=== PATIENT | female | born 1970 | race Caucasian/White ===

== ENCOUNTER → 2018-05-02 08:41 | Outpatient (CLI) | payer BC, SELFPAY ==
[2018-05-02 11:26] LABS: Anion Gap 8.6 mmol/L (3-11); BUN 12 mg/dL (7-18); CO2 28.4 mmol/L (21.0-32.0); CREATININE 1.11 mg/dL (0.55-1.02); Calcium 8.8 mg/dL (8.5-10.1); Chloride 102 mmol/L (98-107); Cholesterol 187 mg/dL (50-200); Estimated GFR 52.24 (mL/min/1.73m2); Glucose 92 mg/dL (70-100); HDL Cholesterol 72 mg/dL (40-60); LDL CHOLESTEROL 91 mg/dL (<100); Magnesium 1.9 mg/dL (1.8-2.4); Potassium 4.1 mmol/L (3.5-5.1); Sodium 139 mmol/L (136-145); Triglyceride 87 mg/dL (30-150)
== END ==
PROVIDERS: PCP Nurse Practitioner Family; Visit Provider Nurse Practitioner Family
DX: Z00.00 Encounter for general adult medical examination without abnormal findings (principal); R00.2 Palpitations; L71.9 Rosacea, unspecified
CPT/HCPCS: 36415; 80048; 80061; 83721; 83735

== ENCOUNTER → 2018-05-02 09:21 | Outpatient (REF) | payer BC, SELFPAY ==
--- NOTE | 2018-05-02 08:30 | PAPFT_PTH ---
PATIENT: Paulina Cook LOC: [facility] U#:[id number] AGE/SX: 55/F ROOM: RE05/02/[address]: LINDA Melton : 1970 BED: DIS: SPEC #: [id number] RECD: 05/02/18 12:53 STATUS: CHARMAINE RETerri #: [id number] HERVE: 05/02/18 08:[address]: Mary Henning DEPT: [facility] Cytology RECD BY: Ghazala Zacarias Tissues: 1 - CX/ENDOCX FOR PAP SMEARS Procedures: PAP THIN PREP/UVM Screening HPV DNA PROBE Comments: [id number]
== END ==
LOC: LBN 09:21
PROVIDERS: PCP Nurse Practitioner Family; Visit Provider Nurse Practitioner Family
DX: Z12.4 Encounter for screening for malignant neoplasm of cervix (principal); Z11.51 Encounter for screening for human papillomavirus (HPV)
CPT/HCPCS: 88142; 87624

== ENCOUNTER 2018-06-12 07:06 | Emergency (ER) | payer BC, SELFPAY ==
[2018-06-12] VITALS (12 sets, daily range): BP systolic 126–174; BP diastolic 72–87; PULSE 49–64; RESP 11–19; TEMP 37; O2SAT 99–100
--- NOTE | 2018-06-12 07:37 | W.ED.GENAD ---
Discharge Plan Disposition Patient Disposition: HOME Condition: Improving Discharge Details Chief Complaint: Dizzy/Sync Clinical Impression: Calf cramp Primary Care Provider: Mary Henning ED Provider: Matthew Rodriguez Home Meds and New Rx's Prescriptions: Continue ketoconazole [Nizoral] 120 ML shampoo 120 ml Topical as directed Qty: 1 RF: 12 metronidazole [MetroCream] 45 GM cream 45 gm Topical DAILY Qty: 1 RF: 0 azelaic acid [Finacea] 50 GM gel 1 applic Topical DAILY RF: 0 Discharge Instructions Additional Instructions: Home to rest today. Small, frequent sips of fluids to maintain hydration. Please increase leafy green vegetables, tree nuts, strawberries or bananas in your diet as we discussed. Follow-up with regular doctor for any concerns. Return to the emergency department for any acute concerns Discharge Data Discharge Date/Time-TO BE ENTERED AT DEPARTURE: 06/12/18 08:47 Medical Decision Making <Armando Hyatt DO - Last Filed: 06/13/18 02:21> This is a pleasant 47-year-old female who presents for evaluation of syncope. Patient was woken up out of sleep by a cramp in her right leg. She got out of bed and began rubbing her leg, however as the leg cramp resolved, she began to become very lightheaded, and then had a syncopal episode. She did fall, but she did not hit her head. She was seen by her , who immediately put a pillow under her head. Her episode of syncope lasted less than 1 minute. She had no tonic-clonic movement. After which she responded and returned to a normal neurologic status. She did have urinary incontinence though. She denies any chest pain, chest pressure, or shortness of breath. Denies PE risk factors such as recent long car rides, immobilization, recent surgery, prior history of DVT or PE, family history of PE or DVT, morbid obesity, exogenous estrogen and smoking, hemoptysis, history of cancer. She denies any history or family history of AAA, aortic dissection, stroke, or myocardial infarction. Physical exam demonstrates normal neurologic exam. No signs of cranial trauma. She has no headache, no signs of meningitis, no neck tenderness, no C-spine tenderness. With a normal neurologic exam, no headache, no visual deficits, no other neurologic abnormalities I do not feel that a CT scan of the head is indicated at this time. Signs and symptoms are most likely concerning for vasovagal syncope secondary to the pain, however because of her history with the calf pain followed by the true syncopal episode pulmonary embolism/DVT does arise on the differential. We will get a d-dimer to evaluate further for this. The patient will be rehydrated with normal saline, laboratory workup will be ordered, will get a chest x-ray to evaluate for any acute fracture, mediastinal widening or other acute process. EKG is benign. Case will be signed out to my colleague. EKG 7: 28 Rate 52, NM 112, QTc 415, QRS 98, sinus bradycardia, short NM syndrome, no ST elevations or depressions, no T wave inversions except for in V1. No evidence of delta wave, epsilon wave, or Brugada syndrome <Matthew Rodriguez MD - Last Filed: 06/12/18 08:39> Received signout on the patient from Dr. Hyatt. Please see his note regarding details of the history, presentation, initial exam and medical decision making. Patient's laboratories unremarkable including CBC, comprehensive, negative troponin and d-dimer. Chest x-ray without acute findings. She is improved. Discussed with her return precautions. She is stable for outpatient management. This is consistent with muscular lower extremity cramping subsequent syncopal event without evidence of seizure or other underlying occult process. Lab Data Lab results reviewed: Yes I reviewed the patient's lab results. HPI <Armando Hyatt DO - Last Filed: 06/13/18 02:21> General Date/Time Provider Initiated Documentation: 06/12/18 07:24. HPI Narrative: This is a 47-year-old female with no past medical history who takes a multivitamin and calcium, whose past surgical history is positive for wisdom teeth removal. She presents today for evaluation of syncope. States that she woke up this morning with a severe cramp in her right leg. She states she usually does not get cramps. She stood up out of bed, began rubbing it. The crampy pain went away she suddenly began to feel very lightheaded, experienced tunnel vision, and passed out. She does not believe she hit her head, nor does her recall seeing her hit her head. He states that she was unconscious for less than a minute, had no tonic-clonic movements, but was completely out of it. After 1 minute the patient spontaneously came back to her normal self, and began conversing and moving all extremities. Patient denies any chest heaviness, chest pain, arm pain, neck pain, numbness tingling or weakness. She is able to get up by herself and stand without significant difficulty. She does admit to urinary incontinence, but no bowel incontinence. She denies any history of seizure or epilepsy. She denies any pain in her mouth. She denies any family or personal history of stroke or myocardial infarction. Currently she denies any headache, neck pain, neck pain, arm or chest pain. Patient states that she does have a very small amount of rib soreness on the right where she fell, however she cannot localize this at all at this point. She states that she feels the pain is most completely resolved patient denies any previous surgeries except for tonsillectomy. Patient denies IV or illicit drug use. She has no other complaints at this time. Related Data Home Medications Medication Instructions Recorded Confirmed ketoconazole [Nizoral] 120 ml TOPICAL as directed #1 11/15/16 06/12/18 script metronidazole [MetroCream] 45 gm TOPICAL DAILY #1 script 11/15/16 06/12/18 azelaic acid [Finacea] 1 applic TOPICAL DAILY script 04/24/18 06/12/18 Allergies Allergy/AdvReac Type Severity Reaction Status Date / Time Sulfa (Sulfonamide Allergy Severe Unverified 06/12/18 07:56 Antibiotics) Review of Systems <Armando Hyatt DO - Last Filed: 06/13/18 02:21> Review of Systems 10 point review of systems was performed, pertinent positives and negatives are noted in the history of present illness. Exam <Armando Hyatt DO - Last Filed: 06/13/18 02:21> Narrative Exam Narrative: 1.Const: Well-nourished, Well-developed, appearing stated age 2.Eyes: PERRL, no conjunctival injection, and symmetrical lids. Minimal horizontal nystagmus. No vertical or rotatory nystagmus. 3.ENT: Atraumatic external nose and ears. Moist MM. Neck: Symmetric, trachea midline, No thyromegaly. No evidence of tongue biting lesions or oral mucosal biting lesions. There is no evidence of raccoon eyes, gay sign, CSF rhinorrhea, mastoid tenderness, cranial crepitus, hemotympanum, exophthalmos, or hyphema. Patient demonstrates intact dentition with no signs of tooth avulsion or fracture, no signs of jaw deformity, no evidence of a LeFort's fracture, with an intact palate, nose and orbital region. There is no evidence of a nasal septal hematoma. No proptosis. Jaw closes symmetrically. Airway is clear. 4.CVS: +S1/S2, No murmurs or gallops. Peripheral pulses 2+ and equal in all extremities. Brisk capillary refill in all extremities. 5.RESP: Unlabored respiratory effort. Clear to auscultation bilaterally. No wheezes rales or rhonchi 6.GI: Soft, Nontender/Nondistended, No hepatosplenomegaly. No guarding or rebound. 7.MSK: Normocephalic/Atraumatic, Extremities w/o deformity or ttp No cyanosis or clubbing, Normal movement of all extremities. No bruising, deformity, or significant tenderness in the right chest. No calf tenderness. Negative Homans sign. 8.Skin: Warm, Dry. No rashes or lesions. 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 Sensation grossly intact, no focal neurologic deficits. Cerebellar function testing is normal. The patient demonstrates a normal hints exam with no findings concerning for a central event. No vertical nystagmus. The head impulse test is negative for any significant central abnormality. Normal test of skew. No suggestion of a central cerebellar event. All 6 cardinal planes of vision or fully intact. No evidence of horizontal or vertical nystagmus. The patient demonstrated a normal rvfqxk-reqq-rejese, good dexterity. There was no evidence of dysdiadochokinesia. Patient was able to ambulate without difficulty. There was no wide-based gait. Romberg, and egql-xw-twsz are both normal on testing. Sensation was intact bilaterally as well as muscle strength bilaterally for all extremities. Patient was able to verbalize butter cup with no slurring, or miss pronunciation. 10.Psych: (AAO) x3. Appropriate mood and affect Sign Out <Armando Hyatt, - Last Filed: 06/13/18 02:21> Sign Out Data: Sign Out Comment: pending labs and imaging Last updated by Armando Hyatt DO at 06/12/18 08:18
--- NOTE | 2018-06-12 07:41 | ED.GENADUL_ITS ---
Discharge Plan Disposition Patient Disposition: HOME Condition: Improving Discharge Details Chief Complaint: Dizzy/Sync Clinical Impression: Calf cramp Primary Care Provider: Mary Henning ED Provider: Matthew Rodriguez Home Meds and New Rx's Prescriptions: Continue ketoconazole [Nizoral] 120 ML shampoo 120 ml Topical as directed Qty: 1 RF: 12 metronidazole [MetroCream] 45 GM cream 45 gm Topical DAILY Qty: 1 RF: 0 azelaic acid [Finacea] 50 GM gel 1 applic Topical DAILY RF: 0 Discharge Instructions Additional Instructions: Home to rest today. Small, frequent sips of fluids to maintain hydration. Please increase leafy green vegetables, tree nuts, strawberries or bananas in your diet as we discussed. Follow-up with regular doctor for any concerns. Return to the emergency department for any acute concerns Discharge Data Discharge Date/Time-TO BE ENTERED AT DEPARTURE: 06/12/18 08:47 Medical Decision Making <Armando Hyatt DO - Last Filed: 06/13/18 02:21> This is a pleasant 47-year-old female who presents for evaluation of syncope. Patient was woken up out of sleep by a cramp in her right leg. She got out of bed and began rubbing her leg, however as the leg cramp resolved, she began to become very lightheaded, and then had a syncopal episode. She did fall, but she did not hit her head. She was seen by her , who immediately put a pillow under her head. Her episode of syncope lasted less than 1 minute. She had no tonic-clonic movement. After which she responded and returned to a normal neurologic status. She did have urinary incontinence though. She denies any chest pain, chest pressure, or shortness of breath. Denies PE risk factors such as recent long car rides, immobilization, recent surgery, prior history of DVT or PE, family history of PE or DVT, morbid obesity , exogenous estrogen and smoking, hemoptysis, history of cancer. She denies any history or family history of AAA, aortic dissection, stroke, or myocardial infarction. Physical exam demonstrates normal neurologic exam. No signs of cranial trauma. She has no headache, no signs of meningitis, no neck tenderness , no C-spine tenderness. With a normal neurologic exam, no headache, no visual deficits, no other neurologic abnormalities I do not feel that a CT scan of the head is indicated at this time. Signs and symptoms are most likely concerning for vasovagal syncope secondary to the pain, however because of her history with the calf pain followed by the true syncopal episode pulmonary embolism/DVT does arise on the differential. We will get a d-dimer to evaluate further for this. The patient will be rehydrated with normal saline, laboratory workup will be ordered, will get a chest x-ray to evaluate for any acute fracture, mediastinal widening or other acute process. EKG is benign. Case will be signed out to my colleague. EKG 7: 28 Rate 52, CA 112, QTc 415, QRS 98, sinus bradycardia, short CA syndrome, no ST elevations or depressions, no T wave inversions except for in V1. No evidence of delta wave, epsilon wave, or Brugada syndrome <Matthew Rodriguez MD - Last Filed: 06/12/18 08:39> Received signout on the patient from Dr. Hyatt. Please see his note regarding details of the history, presentation, initial exam and medical decision making. Patient's laboratories unremarkable including CBC, comprehensive, negative troponin and d-dimer. Chest x-ray without acute findings. She is improved. Discussed with her return precautions. She is stable for outpatient management. This is consistent with muscular lower extremity cramping subsequent syncopal event without evidence of seizure or other underlying occult process. Lab Data Lab results reviewed: Yes I reviewed the patient's lab results. HPI <Armando Hyatt DO - Last Filed: 06/13/18 02:21> General Date/Time Provider Initiated Documentation: 06/12/18 07:24 . HPI Narrative: This is a 47-year-old female with no past medical history who takes a multivitamin and calcium, whose past surgical history is positive for wisdom teeth removal. She presents today for evaluation of syncope. States that she woke up this morning with a severe cramp in her right leg. She states she usually does not get cramps. She stood up out of bed, began rubbing it. The crampy pain went away she suddenly began to feel very lightheaded, experienced tunnel vision, and passed out. She does not believe she hit her head, nor does her recall seeing her hit her head. He states that she was unconscious for less than a minute, had no tonic-clonic movements, but was completely out of it. After 1 minute the patient spontaneously came back to her normal self, and began conversing and moving all extremities. Patient denies any chest heaviness, chest pain, arm pain, neck pain, numbness tingling or weakness. She is able to get up by herself and stand without significant difficulty. She does admit to urinary incontinence, but no bowel incontinence. She denies any history of seizure or epilepsy. She denies any pain in her mouth. She denies any family or personal history of stroke or myocardial infarction. Currently she denies any headache, neck pain, neck pain, arm or chest pain. Patient states that she does have a very small amount of rib soreness on the right where she fell, however she cannot localize this at all at this point. She states that she feels the pain is most completely resolved patient denies any previous surgeries except for tonsillectomy. Patient denies IV or illicit drug use. She has no other complaints at this time. Related Data Home Medications Medication Instructions Recorded Confirmed ketoconazole [Nizoral] 120 ml TOPICAL as directed #1 11/15/16 06/12/18 script metronidazole [MetroCream] 45 gm TOPICAL DAILY #1 script 11/15/16 06/12/18 azelaic acid [Finacea] 1 applic TOPICAL DAILY script 04/24/18 06/12/18 Allergies Allergy/AdvReac Type Severity Reaction Status Date / Time Sulfa (Sulfonamide Allergy Severe Unverified 06/12/18 07:56 Antibiotics) Review of Systems <Armando Hyatt DO - Last Filed: 06/13/18 02:21> Review of Systems 10 point review of systems was performed, pertinent positives and negatives are noted in the history of present illness. Exam <Armando Hyatt DO - Last Filed: 06/13/18 02:21> Narrative Exam Narrative: 1.Const: Well-nourished, Well-developed, appearing stated age 2.Eyes: PERRL, no conjunctival injection, and symmetrical lids. Minimal horizontal nystagmus. No vertical or rotatory nystagmus. 3.ENT: Atraumatic external nose and ears. Moist MM. Neck: Symmetric, trachea midline, No thyromegaly. No evidence of tongue biting lesions or oral mucosal biting lesions. There is no evidence of raccoon eyes, gay sign, CSF rhinorrhea, mastoid tenderness, cranial crepitus, hemotympanum, exophthalmos, or hyphema. Patient demonstrates intact dentition with no signs of tooth avulsion or fracture, no signs of jaw deformity, no evidence of a LeFort's fracture, with an intact palate, nose and orbital region. There is no evidence of a nasal septal hematoma. No proptosis. Jaw closes symmetrically. Airway is clear. 4.CVS: +S1/S2, No murmurs or gallops. Peripheral pulses 2+ and equal in all extremities. Brisk capillary refill in all extremities. 5.RESP: Unlabored respiratory effort. Clear to auscultation bilaterally. No wheezes rales or rhonchi 6.GI: Soft, Nontender/Nondistended, No hepatosplenomegaly. No guarding or rebound. 7.MSK: Normocephalic/Atraumatic, Extremities w/o deformity or ttp No cyanosis or clubbing, Normal movement of all extremities. No bruising, deformity, or significant tenderness in the right chest. No calf tenderness. Negative Homans sign. 8.Skin: Warm, Dry. No rashes or lesions. 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 Sensation grossly intact, no focal neurologic deficits. Cerebellar function testing is normal. The patient demonstrates a normal hints exam with no findings concerning for a central event. No vertical nystagmus. The head impulse test is negative for any significant central abnormality. Normal test of skew. No suggestion of a central cerebellar event. All 6 cardinal planes of vision or fully intact. No evidence of horizontal or vertical nystagmus. The patient demonstrated a normal vpkgod-qmro-qnszli, good dexterity. There was no evidence of dysdiadochokinesia. Patient was able to ambulate without difficulty. There was no wide-based gait. Romberg, and pnhi-um-ifkd are both normal on testing. Sensation was intact bilaterally as well as muscle strength bilaterally for all extremities. Patient was able to verbalize butter cup with no slurring, or miss pronunciation. 10.Psych: (AAO) x3. Appropriate mood and affect Sign Out <Armando Hyatt, - Last Filed: 06/13/18 02:21> Sign Out Data: Sign Out Comment: pending labs and imaging Last updated by Armando Hyatt DO at 06/12/18 08:18
[2018-06-12 07:54] LABS: Abs Immature Grans 0.01 k/cumm (0.0-0.09); Absolute Basophil Count 0.02 k/cumm (0.0-0.2); Absolute Eosinophil Count 0.04 k/cumm (0.0-0.7); Absolute Monocyte Count 0.43 k/cumm (0.11-0.7); Absolute Neutrophil Count 4.29 k/cumm (1.2-6.7); Basophils % 0.3; Eosinophils % 0.7; HGB 14.6 g/dL (12.0-15.5); Immature Grans % 0.2; Lymphocytes % 18.7; Mean Corpuscular Hemoglobin 28.9 pg (27.0-33.0); Mean Platelet Volume 10.8 fL (8.0-11.0); Monocytes % 7.3; Neutrophils % 72.8; Platelet Count 202 x1000/uL (130-400); RBC 5.06 m/cumm (4.00-5.20); RBC Distribution Width 12.9 % (11.7-14.6); White Blood Cell Count 5.89 k/cumm (4.4-10.8)
[2018-06-12] MEDS: Normal Saline 1,000 ML 1000 ML IV (08:00)
[2018-06-12 08:08] LABS: ALT 22 U/L (12-78); AST 19 U/L (15-37); Alkaline Phosphatase 61 U/L (46-116); Anion Gap 8.5 mmol/L (3-11); BUN 13 mg/dL (7-18); Bilirubin, Total 0.5 mg/dL (0.2-1.0); CO2 27.5 mmol/L (21.0-32.0); CREATININE 1.12 mg/dL (0.55-1.02); Chloride 101 mmol/L (98-107); Estimated GFR 51.71 (mL/min/1.73m2); Glucose 120 mg/dL (70-100); Potassium 3.5 mmol/L (3.5-5.1); Sodium 137 mmol/L (136-145); Total Protein 7.4 g/dL (6.4-8.2)
[2018-06-12 08:08] LABS: Bilirubin Negative (Negative); Blood Negative (Negative); Clarity Clear; Glucose Negative (Negative); Ketones Negative (Negative); Leukocyte Esterase Negative (Negative); Nitrite Negative (Negative); Urobilinogen 0.2 EU/dL (Up TO 0.2)
--- NOTE | 2018-06-12 08:14 | DI.RAD_ITS ---
SYMPTOM/DIAGNOSIS: SYNCOPE, RIGHT RIB PAIN PORTABLE AP CHEST: The heart is normal in size. The lungs are clear. The mediastinal structures and pleura appear intact. CONCLUSION: Normal chest. No evidence of acute cardiopulmonary disease.
[2018-06-12 08:15] LABS: Troponin I < 0.02 ng/mL (0.00-0.06)
[2018-06-12 08:29] LABS: D-Dimer 199 ng/mlFEU (<500)
== END 2018-06-12 08:47 | disposition home or self-care (01) ==
PROVIDERS: Student in an Organized Health Care Education/Training Program; Emergency Provider Emergency Medicine; PCP Nurse Practitioner Family
DX: R25.2 Cramp and spasm (principal)
CPT/HCPCS: 36415; 80053; 81025; 93005; 96360; 99285; 71045; 81003; 84484; 85025; 85379; 93010; 99284

== ENCOUNTER 2019-05-16 02:41 | Outpatient (CLI) | payer BC, SELFPAY ==
[2019-05-16 09:18] LABS: Hemoglobin A1C 5.5 % (4.5-6.2)
[2019-05-16 09:35] LABS: Anion Gap 7.4 mmol/L (3-11); BUN 11 mg/dL (7-18); CO2 28.6 mmol/L (21.0-32.0); CREATININE 1.05 mg/dL (0.55-1.02); Calculated LDL 104 mg/dL; Chloride 102 mmol/L (98-107); Cholesterol 196 mg/dL (50-200); Estimated GFR 55.48 (mL/min/1.73m2); Glucose 104 mg/dL (70-100); HDL Cholesterol 81 mg/dL (40-60); Potassium 4.1 mmol/L (3.5-5.1); Sodium 138 mmol/L (136-145); Triglyceride 59 mg/dL (30-150)
== END 2019-05-16 03:01 ==
PROVIDERS: PCP Nurse Practitioner Family; Visit Provider Nurse Practitioner Family
DX: Z00.00 Encounter for general adult medical examination without abnormal findings (principal); Z13.228 Encounter for screening for other metabolic disorders; Z13.220 Encounter for screening for lipoid disorders; Z13.1 Encounter for screening for diabetes mellitus
CPT/HCPCS: 36415; 80048; 80061; 83036

== ENCOUNTER 2020-05-06 18:59 | Outpatient (REF) | payer BC, SELFPAY ==
[2020-05-06 20:02] LABS: Anion Gap 6.2 mmol/L (3-11); BUN 11 mg/dL (7-18); CO2 29.8 mmol/L (21.0-32.0); CREATININE 0.96 mg/dL (0.55-1.02); Calcium 9.3 mg/dL (8.5-10.1); Chloride 102 mmol/L (98-107); Glucose 89 mg/dL (74-106); Potassium 4.2 mmol/L (3.5-5.1); Sodium 138 mmol/L (136-145)
[2020-05-10 09:16] LABS: HBs Antibody, Quant 236.8 mIU/mL (See Note); Hepatitis B Surface Ab Positive (See Note)
[2020-05-10 12:11] LABS: Varicella IgG Antibody Positive (See Note)
[2020-05-10 12:16] LABS: Mumps Antibody IgG Positive (See Note); Rubella IgG Ab (UVM) Positive (See Note)
[2020-05-10 13:55] LABS: Measles IgG Antibody Equivocal (See Note)
== END 2020-05-06 19:19 ==
LOC: LBN 18:59
PROVIDERS: PCP Nurse Practitioner Family; Visit Provider Nurse Practitioner Family
DX: N28.9 Disorder of kidney and ureter, unspecified (principal); Z71.89 Other specified counseling; Z00.00 Encounter for general adult medical examination without abnormal findings
CPT/HCPCS: 80048; 86706; 86787; 86735; 86762; 86765

== ENCOUNTER 2020-06-26 08:27 | Outpatient (REF) | payer BC, SELFPAY ==
[2020-07-01 14:37] LABS: Misc Referral (VDH) See Comments
== END 2020-06-26 08:47 ==
LOC: LBN 08:27
PROVIDERS: PCP Nurse Practitioner Family; Visit Provider Nurse Practitioner Family
DX: R19.7 Diarrhea, unspecified (principal)
CPT/HCPCS: 87329; 87505; 87177

== ENCOUNTER 2020-12-02 01:54 | Outpatient (CLI) | payer BC, SELFPAY ==
--- NOTE | 2020-12-02 09:00 | DI.MAMMO_ITS ---
EXAM: MG MAMMO SCREENING CLINICAL HISTORY: screening,Z12.39. TECHNIQUE: Bilateral full field digital CC and MLO mammographic images were obtained with 3D tomosyn thesis and utilizing computer aided detection (CAD). COMPARISON: 2010 through 2018 from [facility] FINDINGS: Masses/Architectural Distortion: None seen. Microcalcifications: No suspicious pleomorphic-type are seen. Skin Thickening/Nipple Retraction: None. IMPRESSION: 1. No significant interval change with no specific features of malignancy noted. 2. Unless there is more urgent need, annual screening mammography is recommended, as per [place] [employer] guidelines. BI-RADS Category 1-negative Breast Density - Category D - extremely dense Breast Density Category D: The mammogram demonstrates the patient's breast tissue is dense. Dense abram ast tissue is very common and is not abnormal but dense breast tissue can make it harder to find canc er on a mammogram. Also, dense breast tissue may increase their breast cancer risk. This information about the result of the mammogram report was provided to the patient to raise their awareness. Use th is report when you speak with the patient about their risks for breast cancer, which includes their f amily history. At that time, you may recommend for more screening tests (Ultrasound or MRI) as they m ight be useful based on their risk. A negative radiographic report should not delay biopsy if a dominant or clinically suspicious mass is present. Up to ten percent of cancers are not identified on mammography. A negative report may reinforce clinical impression. Adenosis and dense breasts may obscure an underlying neoplasm. False positive reports average 6 to 10%.
== END 2020-12-02 02:14 ==
PROVIDERS: PCP Nurse Practitioner Family; Visit Provider Nurse Practitioner Family
DX: Z12.31 Encounter for screening mammogram for malignant neoplasm of breast (principal)
CPT/HCPCS: 77063; 77067

== ENCOUNTER 2021-12-09 02:16 | Outpatient (CLI) | payer BC, SELFPAY ==
--- NOTE | 2021-12-09 08:50 | DI.MAMMO_ITS ---
Exam(s) MAMMO SCREENING EXAM: MAMMO SCREENING CLINICAL HISTORY: screening,Z12.39 TECHNIQUE: Bilateral full field digital CC and MLO mammographic images were obtained with 3D tomosyn thesis and utilizing computer aided detection (CAD). COMPARISON: Available for comparison. FINDINGS: Masses/Architectural Distortion: None seen. Microcalcifications: No suspicious pleomorphic-type are seen. Skin Thickening/Nipple Retraction: None. IMPRESSION: 1. No significant interval change with no specific features of malignancy noted. 2. Unless there is more urgent need, screening mammography is recommended, as per [place] [employer] guidelines. BI-RADS Category 1 - Negative Breast Density - Category D - Extremely dense Breast density category C or D implies that the patient has dense breast tissue. Dense breast tissue is very common and is not abnormal but dense breast tissue can make it harder to find cancer on a ma mmogram. Also, dense breast tissue may increase their breast cancer risk. This information about the result of the mammogram report was provided to the patient to raise their awareness. Use this report when you speak with the patient about their risks for breast cancer, which includes their family hist ory. At that time, you may recommend for more screening tests (Ultrasound or MRI) as they might be us eful based on their risk. A negative radiographic report should not delay biopsy if a dominant or clinically suspicious mass is present. Up to ten percent of cancers are not identified on mammography. A negative report may reinforce clinical impression. Adenosis and dense breasts may obscure an underlying neoplasm. False positive reports average 6 to 10%. Patient will receive a letter notifying them of these results.
== END 2021-12-09 02:36 ==
PROVIDERS: PCP Nurse Practitioner Family; Visit Provider Nurse Practitioner Family
DX: Z12.31 Encounter for screening mammogram for malignant neoplasm of breast (principal); R92.8 Other abnormal and inconclusive findings on diagnostic imaging of breast
CPT/HCPCS: 77063; 77067

== ENCOUNTER 2022-08-19 12:54 | Outpatient (REF) | payer BC, SELFPAY ==
[2022-08-21 14:01] LABS: Helicobacter pylori Ag, Feces Negative (Negative)
== END 2022-08-19 12:55 | disposition home or self-care (01) ==
LOC: LBN 12:54
PROVIDERS: PCP Nurse Practitioner Family; Visit Provider Nurse Practitioner Family
DX: K21.9 Gastro-esophageal reflux disease without esophagitis (principal)
CPT/HCPCS: 87338

== ENCOUNTER 2022-12-06 03:31 | Outpatient (CLI) | payer BC, SELFPAY ==
[2022-12-06 12:45] LABS: Anion Gap 2.6 mmol/L (3-11); BUN 12 mg/dL (7-18); CO2 31.4 mmol/L (21.0-32.0); CREATININE 1.1 mg/dL (0.55-1.02); Calcium 9.1 mg/dL (8.5-10.1); Calculated LDL 111 mg/dL (<100); Chloride 102 mmol/L (98-107); Cholesterol 215 mg/dL (<200); Estimated GFR 59.71 (mL/min/1.73m2); Glucose 104 mg/dL (74-106); HDL Cholesterol 92 mg/dL (40-60); Potassium 4.1 mmol/L (3.5-5.1); Sodium 136 mmol/L (136-145); Triglyceride 61 mg/dL (<150)
== END 2022-12-06 03:32 | disposition home or self-care (01) ==
LOC: LOS 03:32
PROVIDERS: PCP Nurse Practitioner Family; Visit Provider Nurse Practitioner Family
DX: Z00.00 Encounter for general adult medical examination without abnormal findings (principal); K21.9 Gastro-esophageal reflux disease without esophagitis; Z13.220 Encounter for screening for lipoid disorders
CPT/HCPCS: 36415; 80048; 80061

== ENCOUNTER 2022-12-11 02:02 | Outpatient (CLI) | payer BC, SELFPAY ==
--- NOTE | 2022-12-11 08:15 | DI.MAMMO_ITS ---
Exam(s) MAMMO SCREENING EXAM: MAMMO SCREENING CLINICAL HISTORY: screening,z12.39 TECHNIQUE: Mammograms were interpreted according to the usual protocol including computer analysis w [employer] CAD system, tomosynthesis and C-view imaging. COMPARISON: 2013 through 2021 FINDINGS: The breasts are composed of heterogeneously dense fibroglandular densities, Breast Density category C . No suspicious masses or suspicious microcalcifications are seen. No skin thickening or abnormal axillary lymph nodes are seen. There has been no significant change from prior exams. IMPRESSION: BI-RADS Category 1, Negative mammogram. Yearly screening mammography is recommended. Breast Density Category C, heterogeneously Dense. The mammogram demonstrates the patient's breast tissue is dense. Dense breast tissue is very common a nd is not abnormal but dense breast tissue can make it harder to find cancer on a mammogram. Also, de nse breast tissue may increase breast cancer risk. This information about the result of the mammogram report was provided to the patient to raise their awareness. Use this report when you speak with the patient about their risks for breast cancer, which includes their family history. At that time, you may recommend additional screening tests (Ultrasound or MRI) as they might be useful based on their r isk. A negative radiographic report should not delay biopsy if a dominant or clinically suspicious mass is present. Up to ten percent of cancers are not identified on mammography. A negative report may reinforce clinical impression. Adenosis and dense breasts may obscure an underlying neoplasm. False positive reports average 6 to 10%.
== END 2022-12-11 02:22 ==
LOC: DI 02:02
PROVIDERS: PCP Nurse Practitioner Family; Visit Provider Nurse Practitioner Family
DX: Z12.31 Encounter for screening mammogram for malignant neoplasm of breast (principal)
CPT/HCPCS: 77063; 77067

== ENCOUNTER 2022-12-11 16:47 | Outpatient (REF) | payer BC, SELFPAY ==
[2022-12-11 19:51] LABS: Bilirubin Negative (Negative); Blood Negative (Negative); Clarity Clear (Clear); Glucose Negative (Negative); Ketones Negative (Negative); Leukocyte Esterase Negative (Negative); Nitrite Negative (Negative); Specific Gravity 1.015 (1.005-1.025); Urobilinogen 0.2 mg/dL (Up to 0.2); pH 6.5 (5-8)
[2022-12-11 20:20] LABS: COMMENT (LAB VIEW ONLY) 24.67 mg/dL
== END 2022-12-11 16:48 | disposition home or self-care (01) ==
LOC: LBN 16:47
PROVIDERS: PCP Nurse Practitioner Family; Visit Provider Nurse Practitioner Family
DX: N18.30 Chronic kidney disease, stage 3 unspecified (principal)
CPT/HCPCS: 81003; 82043; 82570

== ENCOUNTER 2023-11-15 11:36 | Outpatient (REF) | payer BC, SELFPAY ==
--- NOTE | 2023-11-15 10:00 | PAPFT_PTH ---
PATIENT: Paulina Cook LOC: [facility] U#:[id number] AGE/SX: 53/F ROOM: RE11/15/[address]: LINDA Melton : 1970 BED: DIS: 11/15/2023 SPEC #: [id number] RECD: 11/16/23 12:55 STATUS: CHARMAINE RETerri #: [id number] HERVE: 11/15/23 10:[address]: Mary Henning DEPT: [facility] Cytology RECD BY: Ghazala Zacarias Tissues: 1 - CX/ENDOCX FOR PAP SMEARS Procedures: PAP THIN PREP/UVM Screening HPV DNA PROBE Comments: [id number]
== END 2023-11-15 11:37 | disposition home or self-care (01) ==
LOC: LBN 11:36
PROVIDERS: PCP Nurse Practitioner Family; Visit Provider Nurse Practitioner Family
DX: Z01.419 Encounter for gynecological examination (general) (routine) without abnormal findings (principal); Z11.51 Encounter for screening for human papillomavirus (HPV)
CPT/HCPCS: 88142; 87624

== ENCOUNTER → 2023-12-17 04:20 | Outpatient (CLI) | payer BC, SELFPAY ==
--- NOTE | 2023-12-17 07:45 | DI.MAMMO_ITS ---
Exam(s) MAMMO SCREENING EXAM: MAMMO SCREENING CLINICAL HISTORY: screening,z12.39 TECHNIQUE: Bilateral full field digital CC and MLO mammographic images were obtained with 3D tomosyn thesis and utilizing computer aided detection (CAD). COMPARISON: Available for comparison. FINDINGS: Masses/Architectural Distortion: None seen. Microcalcifications: No suspicious pleomorphic-type are seen. Skin Thickening/Nipple Retraction: None. IMPRESSION: 1. No significant interval change with no specific features of malignancy noted. 2. Unless there is more urgent need, screening mammography is recommended, as per [employer] guidelines. BI-RADS Category 1 - Negative Breast Density - Category C - Heterogeneously dense Breast density category C or D implies that the patient has dense breast tissue. Dense breast tissue is very common and is not abnormal but dense breast tissue can make it harder to find cancer on a ma mmogram. Also, dense breast tissue may increase their breast cancer risk. This information about the result of the mammogram report was provided to the patient to raise their awareness. Use this report when you speak with the patient about their risks for breast cancer, which includes their family hist ory. At that time, you may recommend for more screening tests (Ultrasound or MRI) as they might be us eful based on their risk. A negative radiographic report should not delay biopsy if a dominant or clinically suspicious mass is present. Up to ten percent of cancers are not identified on mammography. A negative report may reinforce clinical impression. Adenosis and dense breasts may obscure an underlying neoplasm. False positive reports average 6 to 10%. Patient will receive a letter notifying them of these results.
== END ==
PROVIDERS: PCP Nurse Practitioner Family; Visit Provider Nurse Practitioner Family
DX: Z12.31 Encounter for screening mammogram for malignant neoplasm of breast (principal)
CPT/HCPCS: 77063; 77067

== ENCOUNTER 2024-03-10 03:06 | Outpatient (CLI) | payer BC, SELFPAY ==
[2024-03-11 13:27] LABS: Ro60 Ab, IgG <7.0 CU (<20.0); SS-A/Ro, IgG <2.3 CU (<20.0); SS-B (La) Ab, IgG <3.3 CU (<20.0)
== END 2024-03-10 03:07 | disposition home or self-care (01) ==
LOC: LBO 03:06
PROVIDERS: PCP Nurse Practitioner Family; Visit Provider Registered Nurse Maternal Newborn
DX: R68.2 Dry mouth, unspecified (principal)
CPT/HCPCS: 36415; 84443; 86235

== ENCOUNTER 2025-01-06 02:43 | Outpatient (CLI) | payer BC, SELFPAY ==
--- NOTE | 2025-01-06 06:00 | DI.MAMMO_ITS ---
Exam(s) MAMMO SCREENING EXAM: MAMMO SCREENING CLINICAL HISTORY: screening,Z12.39 TECHNIQUE: Bilateral full field digital CC and MLO mammographic images were obtained with 3D tomosyn thesis and utilizing computer aided detection (CAD). COMPARISON: Available for comparison. FINDINGS: Masses/Architectural Distortion: No suspicious masses or areas of architectural distortion are presen t. Microcalcifications: No suspicious pleomorphic-type are seen. Skin Thickening/Nipple Retraction: None. IMPRESSION: 1. No significant interval change with no specific features of malignancy noted. 2. Unless there is more urgent need, screening mammography is recommended, as per [employer] guidelines. BI-RADS Category 1 - Negative Breast Density - Category C - Heterogeneously dense Breast density category C or D implies that the patient has dense breast tissue. Dense breast tissue is very common and is not abnormal but dense breast tissue can make it harder to find cancer on a ma mmogram. Also, dense breast tissue may increase their breast cancer risk. This information about the result of the mammogram report was provided to the patient to raise their awareness. Use this report when you speak with the patient about their risks for breast cancer, which includes their family hist ory. At that time, you may recommend for more screening tests (Ultrasound or MRI) as they might be us eful based on their risk. A negative radiographic report should not delay biopsy if a dominant or clinically suspicious mass is present. Up to ten percent of cancers are not identified on mammography. A negative report may reinforce clinical impression. Adenosis and dense breasts may obscure an underlying neoplasm. False positive reports average 6 to 10%. Patient will receive a letter notifying them of these results.
== END 2025-01-06 03:03 ==
LOC: DI 02:44
PROVIDERS: PCP Nurse Practitioner Family; Visit Provider Nurse Practitioner Family
DX: Z12.31 Encounter for screening mammogram for malignant neoplasm of breast (principal); R92.333 Mammographic heterogeneous density, bilateral breasts
CPT/HCPCS: 77063; 77067

== ENCOUNTER 2025-01-06 03:49 | Outpatient (CLI) | payer BC, SELFPAY ==
[2025-01-06 17:58] LABS: Prolactin 5.5 ng/mL (See Note)
== END 2025-01-06 03:50 | disposition home or self-care (01) ==
LOC: LBO 03:49
PROVIDERS: PCP Nurse Practitioner Family; Visit Provider Nurse Practitioner Family
DX: N95.1 Menopausal and female climacteric states (principal)
CPT/HCPCS: 36415; 83001; 84146

== ENCOUNTER 2025-08-28 01:35 | Outpatient (CLI) | payer BC, SELFPAY ==
[2025-08-28 09:12] LABS: Cholesterol 198 mg/dL (<200); HDL Cholesterol 86 mg/dL (>40)
[2025-08-28 09:16] LABS: ALT 15 U/L (10-49); AST 22 U/L (<34); Albumin 4.4 g/dL (3.2-5.0); Alkaline Phosphatase 83 U/L (46-116); Anion Gap 7.2 mmol/L (3-11); BUN 11 mg/dL (9-23); Bilirubin, Total 1.2 mg/dL (0.2-1.2); CO2 28.8 mmol/L (20.0-31.0); Calcium 9.3 mg/dL (8.3-10.6); Chloride 101 mmol/L (98-107); Glucose 98 mg/dL (74-106); Potassium 3.7 mmol/L (3.5-5.1); Sodium 137 mmol/L (136-145); Total Protein 7.2 g/dL (5.7-8.2)
== END 2025-08-28 01:36 | disposition home or self-care (01) ==
LOC: LBO 01:36
PROVIDERS: PCP Nurse Practitioner Family; Visit Provider Obstetrics & Gynecology
DX: E78.5 Hyperlipidemia, unspecified (principal)
CPT/HCPCS: 36415; 80053; 83721; 82465; 83718; 84478